=== PATIENT | female | born 1940 | race Caucasian/White ===

== ENCOUNTER 2017-10-22 09:17 | Observation (INO) | payer OTHER ==
[~2017-10-22] VITALS: Ht 162.6 cm; Wt 76.7 kg
[~2017-10-22 09:17] MED LIST: ASPI325 PO; ASPI325EC PO; ASPI81CH PO; DIGO.125; DIGO.125 PO; DOCU100 PO; ELIQUIS5 MG PO; ESOM20 PO; HYDACE5 PO; IBUP800 PO; LANOXIN125 MCG PO; LOSA25 PO; METO100ER; METO100ER PO; NAPR220 PO; NAPR550 PO; NIFE30ER PO; OMEP20ER PO; POTA10T PO; Prilosec Otc20 MG; RANI150 PO; RXNAPNA550 PO; TELM20; VERA100 PO; VERA240ERB; VERA80; VERA80 PO
[2017-10-22 09:59] LABS: BASOPHILS ABSOLUTE AUTO 0.03 K/mm3 (0.00-0.23); BASOPHILS PERCENT AUTO 0 % (0-2); EOSINOPHILS ABSOLUTE AUTO 0.01 K/mm3 (0.00-0.68); EOSINOPHILS PERCENT AUTO 0 % (0-6); Hematocrit 46.3 % (33.0-51.0); Hemoglobin 14.8 g/dL (11.5-16.0); IMMATURE GRAN ABSOLUTE AUTO 0.11 K/mm3 (0.00-0.10); IMMATURE GRAN PERCENT AUTO 1 % (0-1); LYMPHOCYTES ABSOLUTE AUTO 0.31 K/mm3 (0.84-5.20); LYMPHOCYTES PERCENT AUTO 2 % (21-46); MONOCYTES ABSOLUTE AUTO 0.46 K/mm3 (0.16-1.47); MONOCYTES PERCENT AUTO 3 % (4-13); Mean Corpuscular HGB 28.2 pg (26.0-34.0); Mean Corpuscular Volume 88 fL (80-100); Mean Platelet Volume 11.3 fL (9.1-12.4); NEUTROPHILS ABSOLUTE AUTO 16.28 K/mm3 (1.96-9.15); NEUTROPHILS PERCENT AUTO 95 % (41-73); Platelet Count 171 K/mm3 (150-400); RDW Coefficient Variation 13.7 % (11.7-14.2); RDW Standard Deviation 44.3 fL (35.1-46.3); Red Blood Cell Count 5.24 M/mm3 (3.80-5.20)
[2017-10-22 10:32] LABS: Digoxin (Lanoxin) 0.58 ug/mL (0.80-2.00)
[2017-10-22 15:26] LABS: Anion Gap 10 mmol/L (6-16); Blood Urea Nitrogen 12 mg/dL (8-24); Bun/Creatinine Ratio 20.8 (12.0-20.0); CO2, Blood 22 mmol/L (21-32); Calcium, Blood 7.5 mg/dL (8.5-10.1); Chloride, Blood 111 mmol/L (98-108); Creatinine, Blood 0.58 mg/dL (0.40-1.00); Glomerular Filtration Rate >60 (60-); Glucose, Blood 112 mg/dL (70-99); Potassium, Blood 3.9 mmol/L (3.5-5.5); Sodium, Blood 143 mmol/L (136-145)
[2017-10-22 20:38] LABS: Source, Urine Clean Catch
[2017-10-22 20:40] LABS: Appearance, Urine Hazy (Clear); Blood, Urine Neg (Neg); Color, Urine Yellow (P-Yellow); Glucose Qualitative, Urine Neg (Neg); Ketones, Urine Neg (Neg); Leukocyte Esterase, Urine 1+ (Neg); Nitrite, Urine Neg (Neg); Protein, Urine 1+ (Neg); Specific Gravity, Urine 1.025 (1.003-1.022); Urobilinogen, Urine NORM (Normal)
[2017-10-22 20:53] LABS: Bilirubin, Urine 1+ (Neg)
[2017-10-22 20:55] LABS: Bacteria Many /hpf; Red Blood Cells, Urine 0-2 /hpf (0-2); Squamous Epithelial Cells Mod /hpf (Few)
[2017-10-22 20:56] LABS: Mucus Mod (0-Heavy)
[2017-10-23 04:59] LABS: Albumin, Blood 2.4 g/dL (3.4-5.0); Anion Gap 10 mmol/L (6-16); Blood Urea Nitrogen 12 mg/dL (8-24); Bun/Creatinine Ratio 21.4 (12.0-20.0); CO2, Blood 22 mmol/L (21-32); Chloride, Blood 111 mmol/L (98-108); Creatinine, Blood 0.56 mg/dL (0.40-1.00); Glomerular Filtration Rate >60 (60-); Glucose, Blood 101 mg/dL (70-99); Phosphorus, Blood 1.9 mg/dL (2.5-4.9); Potassium, Blood 3.6 mmol/L (3.5-5.5); Sodium, Blood 143 mmol/L (136-145)
[2017-10-23] MEDS ORDERED: SACC250C PO (09:19)
[2017-10-23] MEDS ORDERED: VANC125 PO (13:36)
== END 2017-10-23 14:46 | disposition home or self-care (01) ==
LOC: ER 09:17 → PCU 09:18 → EDBEDREQSVC 13:41 → PCU 15:01
PROVIDERS: Emergency Medicine; Hospitalist
DX: I47.1 Supraventricular tachycardia (principal); I10 Essential (primary) hypertension; A08.11 Acute gastroenteropathy due to Norwalk agent; K21.9 Gastro-esophageal reflux disease without esophagitis; Z79.899 Other long term (current) drug therapy; Z88.0 Allergy status to penicillin; Z88.8 Allergy status to other drugs, medicaments and biological substances; Z90.710 Acquired absence of both cervix and uterus; Z90.49 Acquired absence of other specified parts of digestive tract
CPT/HCPCS: 36415; 80048; 80069; 80162; 81001; 83735; 85025; 87040; 87086; 87493; 93005; 93010; 96361; 96365; 96374; 96375; 96376; 99285; G0378; J0153; J0780; J1160; J1956; J3480; J7030

== ENCOUNTER 2019-07-29 18:11 | Emergency (ER) | payer OTHER ==
[~2019-07-29] VITALS: Ht 162.6 cm; Wt 73.5 kg
[~2019-07-29 18:11] MED LIST changes: +SACC250C PO; +VANC125 PO
[2019-07-29 18:55] LABS: BASOPHILS ABSOLUTE AUTO 0.06 K/mm3 (0.00-0.23); BASOPHILS PERCENT AUTO 1 % (0-2); EOSINOPHILS ABSOLUTE AUTO 0.13 K/mm3 (0.00-0.68); EOSINOPHILS PERCENT AUTO 1 % (0-6); Hematocrit 45.8 % (33.0-51.0); Hemoglobin 14.3 g/dL (11.5-16.0); IMMATURE GRAN ABSOLUTE AUTO 0.07 K/mm3 (0.00-0.10); IMMATURE GRAN PERCENT AUTO 1 % (0-1); LYMPHOCYTES ABSOLUTE AUTO 2.42 K/mm3 (0.84-5.20); LYMPHOCYTES PERCENT AUTO 22 % (21-46); MONOCYTES ABSOLUTE AUTO 0.82 K/mm3 (0.16-1.47); MONOCYTES PERCENT AUTO 7 % (4-13); Mean Corpuscular HGB 28.3 pg (26.0-34.0); Mean Corpuscular HGB Conc 31.2 g/dL (31.5-36.5); Mean Corpuscular Volume 91 fL (80-100); Mean Platelet Volume 11.8 fL (9.1-12.4); NEUTROPHILS ABSOLUTE AUTO 7.72 K/mm3 (1.96-9.15); NEUTROPHILS PERCENT AUTO 69 % (41-73); Platelet Count 200 K/mm3 (150-400); RDW Coefficient Variation 13.4 % (11.7-14.2); RDW Standard Deviation 44.5 fL (35.1-46.3); Red Blood Cell Count 5.05 M/mm3 (3.80-5.20); White Blood Cell Count 11.22 K/mm3 (4.00-11.30)
[2019-07-29 19:17] LABS: Troponin I <0.015 ng/mL (0.000-0.040)
[2019-07-29 19:24] LABS: Alanine Aminotransfer (ALT/SGP 28 U/L (12-78); Albumin, Blood 3.5 g/dL (3.4-5.0); Albumin/Globulin Ratio 0.8 (0.8-1.8); Alk Phos 82 U/L (50-136); Anion Gap 8 mmol/L (6-16); Aspartate Aminotrans (AST/SGOT 29 U/L (12-37); Bilirubin, Total 0.4 mg/dL (0.1-1.0); Blood Urea Nitrogen 14 mg/dL (8-24); Bun/Creatinine Ratio 24.1 (12.0-20.0); CO2, Blood 22 mmol/L (21-32); Calcium, Blood 9.1 mg/dL (8.5-10.1); Chloride, Blood 107 mmol/L (98-108); Creatinine, Blood 0.58 mg/dL (0.40-1.00); Digoxin (Lanoxin) 0.68 ug/mL (0.80-2.00); Globulin, Blood 4.5 g/dL (2.2-4.0); Glomerular Filtration Rate >60 (60-); Glucose, Blood 162 mg/dL (70-99); Sodium, Blood 137 mmol/L (136-145)
[2019-07-29] MEDS ORDERED: Ultram50 MG PO (20:02)
== END 2019-07-29 20:19 | disposition home or self-care (01) ==
LOC: ER 18:11
PROVIDERS: Emergency Medicine
DX: I10 Essential (primary) hypertension (principal); R07.9 Chest pain, unspecified; I48.91 Unspecified atrial fibrillation; Z88.0 Allergy status to penicillin; Z88.8 Allergy status to other drugs, medicaments and biological substances; Z79.899 Other long term (current) drug therapy; Z79.01 Long term (current) use of anticoagulants
CPT/HCPCS: 36415; 71046; 80053; 80162; 83690; 84484; 85025; 93005; 93010; 96374; 99285-25; A9270; J0360; J1885

== ENCOUNTER 2020-08-20 03:57 | Emergency (ER) | payer OTHER ==
[~2020-08-20] VITALS: Ht 162.6 cm; Wt 63.5 kg
[~2020-08-20 03:57] MED LIST changes: +Ultram50 MG PO
== END 2020-08-20 06:08 | disposition home or self-care (01) ==
LOC: ER 03:57
DX: S22.32XA Fracture of one rib, left side, initial encounter for closed fracture (principal); E86.0 Dehydration; I10 Essential (primary) hypertension; I48.91 Unspecified atrial fibrillation; Z79.899 Other long term (current) drug therapy; Z79.01 Long term (current) use of anticoagulants; Z88.0 Allergy status to penicillin; Z88.8 Allergy status to other drugs, medicaments and biological substances; W06.XXXA Fall from bed, initial encounter
CPT/HCPCS: 71046; 96374; 96375; 99283-25; J2270; J2405; J7030